=== PATIENT | male | born 1950 | race Caucasian/White ===

== ENCOUNTER 2018-10-01 08:17 | Day surgery (SDC) | payer MEDICAID ==
[~2018-10-01] VITALS: Ht 180.3 cm; Wt 79.4 kg
[2018-10-01] MEDS ORDERED: fentaNYL 0.05 MG/ML VIAL ONE (10:37)
[2018-10-01] MEDS ORDERED: LIDOCAINE 2% 100 MG/5 ML UJET TP ONE (10:37)
== END 2018-10-01 11:06 | disposition home or self-care (01) ==
LOC: MTU 08:17 → MDS 08:17
PROVIDERS: ATTEND Internal Medicine Gastroenterology
DX: Z12.11 Encounter for screening for malignant neoplasm of colon (principal); D12.4 Benign neoplasm of descending colon; K64.8 Other hemorrhoids; K57.30 Diverticulosis of large intestine without perforation or abscess without bleeding
CPT/HCPCS: 45385; J3010